=== PATIENT | male | born 1960 | race Caucasian/White ===

== ENCOUNTER → 2019-12-24 | Outpatient (CLI) | payer MEDICARE ==
--- NOTE | 2019-12-24 15:41 | Diagnostic Imaging Report ---
INDICATION: Fall with right shoulder pain. TIME OF EXAM: 2:02 PM Three views of the right shoulder were obtained. Glenohumeral and acromioclavicular alignment are normal. Acromiohumeral space is normal. No fracture or dislocation is seen. IMPRESSION: No acute bony abnormality is detected. Dictated by: Dictated on workstation # [id number]
--- NOTE | 2019-12-24 16:06 | Diagnostic Imaging Report ---
INDICATION: Right shoulder pain. TIME OF EXAM: 3:03 PM Two views of the right shoulder demonstrate normal glenohumeral and acromioclavicular alignment. Acromiohumeral space is normal. No fracture or dislocation is seen. IMPRESSION: No acute abnormality is detected. Dictated by: Dictated on workstation # [id number]
== END ==
LOC: RAD FS 13:52
PROVIDERS: ATTEND Nurse Practitioner
DX: M25.511 Pain in right shoulder (principal); W19.XXXA Unspecified fall, initial encounter
CPT/HCPCS: 73030

== ENCOUNTER → 2020-09-12 | Outpatient (CLI) | payer MEDICARE ==
--- NOTE | 2020-09-12 15:56 | Diagnostic Imaging Report ---
INDICATION: Shoulder pain. COMPARISON: None. FINDINGS: Three views of the left shoulder were obtained. There is no fracture, dislocation, or other acute bony abnormality identified. The soft tissues appear unremarkable. No radiopaque foreign bodies identified. The visualized portions of the left lung are clear. IMPRESSION: No acute fractures or dislocations of the left shoulder. Dictated by: Dictated on workstation # [id number]
--- NOTE | 2020-09-12 15:57 | Diagnostic Imaging Report ---
INDICATION: Shoulder pain. History of previous surgery. COMPARISON: None. FINDINGS: Multiple radiographic views of the right shoulder were obtained. Multiple metallic orthopedic anchor screws are noted within the humeral head. No unexpected radiopaque foreign bodies are identified. Glenohumeral joint space is maintained. Note is made of moderate narrowing of the acromiohumeral joint space. This is suggestive of chronic rotator cuff tear. Joint spaces are otherwise maintained. Osseous structures are intact. Included portions of the right hemithorax are clear. IMPRESSION: 1. Postsurgical changes of the right shoulder as above. 2. Narrowing of the acromiohumeral joint space suggestive of underlying chronic rotator cuff tear. 3. No acute fracture or dislocation. Dictated by: Dictated on workstation # [id number]
== END ==
LOC: RAD FS 13:08
PROVIDERS: ATTEND Nurse Practitioner
DX: M25.811 Other specified joint disorders, right shoulder (principal); M25.512 Pain in left shoulder; Z98.890 Other specified postprocedural states
CPT/HCPCS: 73030

== ENCOUNTER → 2022-02-19 | Outpatient (CLI) | payer MEDICARE, OTHER ==
--- NOTE | 2022-02-19 11:48 | Diagnostic Imaging Report ---
History: Bilateral shoulder pain. Rotator cuff tear. COMPARISON: 09/12/2020 TECHNIQUE: 4 views of the bilateral shoulders FINDINGS: There are postsurgical changes from prior rotator cuff repair of the right shoulder. Alignment appears normal. No acute fracture is seen. Joint spaces are preserved. No acute fracture or dislocation is seen in the left shoulder. Alignment appears normal. Joint spaces generally appear preserved. IMPRESSION: 1. Postsurgical changes in the right shoulder. No acute osseous abnormality is seen in the bilateral shoulders. Dictated by: Dictated on workstation # [id number]
== END ==
LOC: RAD FS 09:12
PROVIDERS: ATTEND Nurse Practitioner
DX: M75.121 Complete rotator cuff tear or rupture of right shoulder, not specified as traumatic (principal); M75.122 Complete rotator cuff tear or rupture of left shoulder, not specified as traumatic